=== PATIENT | female | born 1945 | race Caucasian/White ===

== ENCOUNTER 2018-02-20 11:24 | Observation (INO) | payer MEDICARE ==
[~2018-02-20] VITALS: Ht 157.5 cm; Wt 104.2 kg
[~2018-02-20 11:24] MED LIST: ASPI-1197 PO; BUDE10.2 IH; DILT180T12 PO; HYDR25TA PO; LEVO50TA11 PO; NITR0.4T SL; PROAIR HFA PUFF; PROG100C6 PO
[2018-02-20] MEDS ORDERED: NITROGLYCERIN 1GM/1 INCH PACKET TD ONE (11:44)
[2018-02-20] MEDS ORDERED: ASPIRIN 325 MG TABLET ONE (11:44)
[2018-02-20 11:54] LABS: BASOPHILS % (AUTO) 0.4 % (0.0-5.0); EOSINOPHILS % (AUTO) 0.2 % (0.0-8.0); HEMATOCRIT 37.1 % (36-48); LYMPHOCYTES % (AUTO) 12.8 % (21.0-51.0); MEAN CORPUSCULAR HEMOGLOBIN 26.5 pg (27.0-33.0); MEAN CORPUSCULAR HGB CONC 31.1 g/dL (32.0-36.0); MEAN CORPUSCULAR VOLUME 85.1 fL (79-99); MONOCYTES % (AUTO) 7.3 % (3.0-13.0); NEUTROPHILS % (AUTO) 79.3 % (40.0-77.0); PLATELET COUNT (AUTO) 405 K/uL (130-400); RED BLOOD CELL COUNT(AUTO) 4.36 MIL/uL (4.00-5.50); RED CELL DISTRIBUTION WIDTH 15.3 % (11.0-15.5); WHITE BLOOD COUNT (AUTO) 12.6 K/uL (4.8-10.8)
[2018-02-20 12:35] LABS: ALBUMIN 2.8 g/dL (3.5-5.0); BILIRUBIN,TOTAL 0.4 mg/dL (0.2-1.0); CREATININE 0.8 mg/dL (0.5-1.5); TOTAL PROTEIN, SERUM 7.1 g/dL (6.0-8.3)
[2018-02-20 12:46] LABS: POTASSIUM 2.9 mmol/L (3.5-5.1)
[2018-02-20] MEDS ORDERED: POTASSIUM CHLORIDE 20 MEQ ERTAB PO ONE (13:22)
[2018-02-20] MEDS ORDERED: SODIUM CHLORIDE 0.9% 10 ML VIAL IVP PRN (14:15)
[2018-02-20 15:00] LABS: INR 0.95 (0.85-1.15); PARTIAL THROMBOPLASTIN TIME 27.7 SEC (26.3-35.5)
[2018-02-20 15:25] VITALS: BP 118/78
[2018-02-20] MEDS ORDERED: ACETAMINOPHEN EXTRA STRENGTH 500 MG TABLET PO PRN (16:30)
[2018-02-20] MEDS ORDERED: HYDROMORPHONE HCL 0.5 MG/0.5 ML ML IVP PRN (16:30)
[2018-02-20 17:15] LABS: CREATINE KINASE, TOTAL 39 U/L (21-232); MYOGLOBIN 36 ng/mL (10-92); TROPONIN I < 0.04 ng/mL (0.00-0.06)
[2018-02-20] MEDS ORDERED: HYDR25TA PO (17:15)
[2018-02-20] MEDS ORDERED: UMEC62.5 IH (17:15)
[2018-02-20] MEDS ORDERED: MONT10TA24 PO (17:15)
[2018-02-20] MEDS ORDERED: ERGO500014 PO (17:15)
[2018-02-20] MEDS ORDERED: ALBU2.5V2 IH (17:15)
[2018-02-20] MEDS ORDERED: THEO400T3 PO (17:15)
[2018-02-20] MEDS ORDERED: FLUT1BLS IH (17:15)
[2018-02-20] MEDS ORDERED: LEVO50TA11 PO (17:15)
[2018-02-20] MEDS ORDERED: PRED20TA3 PO (17:15)
[2018-02-20] MEDS ORDERED: PROG100C6 PO (17:15)
[2018-02-20] MEDS ORDERED: DICL100T5 PO (17:15)
[2018-02-20] MEDS ORDERED: MELO-108 PO (17:15)
[2018-02-20] MEDS ORDERED: PROAIR 90 MCG PUFF PRN (19:00)
[2018-02-20] MEDS ORDERED: ALBUTEROL SULFATE 0.083% 2.5 MG/3 ML INH IH PRN (19:00)
[2018-02-20 20:00] VITALS: BP 114/54
[2018-02-20] MEDS: THEOPHYLLINE ANHYDROUS 400 MG PO SCH (21:00)
[2018-02-20] MEDS: PROGESTERONE MICRONIZED PO SCH (21:00)
[2018-02-20] MEDS: DICLOFENAC SODIUM 100 MG PO SCH (21:00)
[2018-02-20] MEDS: MONTELUKAST SODIUM 10 MG TAB PO SCH (21:54)
[2018-02-20] MEDS: MELOXICAM 7.5 MG TABLET PO SCH (21:55)
[2018-02-20] MEDS: IPRATROPIUM 0.5 MG/2.5 ML INH IH SCH (23:14)
[2018-02-20] MEDS: ALBUTEROL SULFATE 0.083% 2.5 MG/3 ML INH IH SCH (23:14)
[2018-02-21] VITALS (7 sets, daily range): BP systolic 110–160; BP diastolic 51–73
[2018-02-21 04:34] LABS: HEMATOCRIT 31.1 % (36-48); MEAN CORPUSCULAR HEMOGLOBIN 28.7 pg (27.0-33.0); MEAN CORPUSCULAR HGB CONC 33.5 g/dL (32.0-36.0); MEAN CORPUSCULAR VOLUME 85.5 fL (79-99); PLATELET COUNT (AUTO) 423 K/uL (130-400); RED BLOOD CELL COUNT(AUTO) 3.63 MIL/uL (4.00-5.50); RED CELL DISTRIBUTION WIDTH 15.5 % (11.0-15.5); WHITE BLOOD COUNT (AUTO) 10.8 K/uL (4.8-10.8)
[2018-02-21 04:56] LABS: ALBUMIN 2.4 g/dL (3.5-5.0); BILIRUBIN,TOTAL 0.5 mg/dL (0.2-1.0); POTASSIUM 3.8 mmol/L (3.5-5.1); TOTAL PROTEIN, SERUM 6.2 g/dL (6.0-8.3)
[2018-02-21] MEDS: ALBUTEROL SULFATE 0.083% 2.5 MG/3 ML INH IH SCH ×4 (06:03→23:30)
[2018-02-21] MEDS: IPRATROPIUM 0.5 MG/2.5 ML INH IH SCH ×4 (06:03→23:30)
[2018-02-21] MEDS: BUDESONIDE 0.5 MG/2 ML INH IH SCH ×2 (06:15→18:36)
[2018-02-21] MEDS: LEVOTHYROXINE 50 MCG TABLET PO SCH (06:20)
[2018-02-21] MEDS: HYDROCHLOROTHIAZIDE 25 MG TABLET PO SCH (06:20)
[2018-02-21 08:13] LABS: CREATINE KINASE, TOTAL 36 U/L (21-232); MYOGLOBIN 45 ng/mL (10-92); TROPONIN I < 0.04 ng/mL (0.00-0.06)
[2018-02-21] MEDS ORDERED: BIEST TP SCH (09:00)
[2018-02-21] MEDS ORDERED: [UNRECOGNIZED DRUG - OTHER] TP SCH (09:00)
[2018-02-21] MEDS: PREDNISONE 20 MG TABLET PO SCH (09:31)
[2018-02-21] MEDS: ASPIRIN 81MG TAB.CHEW PO SCH (09:31)
[2018-02-21] MEDS: DICLOFENAC SODIUM 100 MG PO SCH (21:00)
[2018-02-21] MEDS: THEOPHYLLINE ANHYDROUS 400 MG PO SCH (21:00)
[2018-02-21] MEDS: PROGESTERONE MICRONIZED PO SCH (21:00)
[2018-02-21] MEDS: MELOXICAM 7.5 MG TABLET PO SCH (22:54)
[2018-02-21] MEDS: MONTELUKAST SODIUM 10 MG TAB PO SCH (22:54)
[2018-02-22 03:45] VITALS: BP 122/60
[2018-02-22] MEDS: HYDROCHLOROTHIAZIDE 25 MG TABLET PO SCH (05:56)
[2018-02-22] MEDS: LEVOTHYROXINE 50 MCG TABLET PO SCH (05:56)
[2018-02-22] MEDS: IPRATROPIUM 0.5 MG/2.5 ML INH IH SCH ×2 (06:00→12:48)
[2018-02-22] MEDS: ALBUTEROL SULFATE 0.083% 2.5 MG/3 ML INH IH SCH ×2 (06:00→12:48)
[2018-02-22] MEDS: BUDESONIDE 0.5 MG/2 ML INH IH SCH (06:11)
[2018-02-22 07:46] VITALS: BP 129/71
[2018-02-22] MEDS: ASPIRIN 81MG TAB.CHEW PO SCH (09:00)
[2018-02-22] MEDS: PREDNISONE 20 MG TABLET PO SCH (09:00)
[2018-02-22] MEDS ORDERED: REGADENOSON 0.4 MG/5 ML PF SYG IVP SCH (09:30)
[2018-02-22 12:22] VITALS: BP 142/71
[2018-02-22] MEDS ORDERED: HOME MEDICATION 1 EACH TP SCH (21:00)
[2018-02-27] MEDS ORDERED: ERGOCALCIFEROL (VITAMIN D2) 50,000 UNIT CAPSULE PO SCH (09:00)
== END 2018-02-22 14:45 | disposition home or self-care (01) ==
LOC: EDH 11:24 → EDHIP 13:40 → 3AH 15:39
PROVIDERS: ADMIT Internal Medicine; ATTEND Internal Medicine
DX: R07.89 Other chest pain (principal); I25.10 Atherosclerotic heart disease of native coronary artery without angina pectoris; E66.01 Morbid (severe) obesity due to excess calories; E78.5 Hyperlipidemia, unspecified; I10 Essential (primary) hypertension; J44.9 Chronic obstructive pulmonary disease, unspecified; E03.9 Hypothyroidism, unspecified
CPT/HCPCS: 36415 ×2; 71045; 78452; 80053 ×2; 82550 ×2; 83874 ×2; 84484 ×3; 85025; 85027; 85610; 85730; 93005; 93017; 94640 ×10; 94664; 99285; A9500 ×2; G0378 ×49; J2785; 96374

== ENCOUNTER → 2018-03-06 | Outpatient (CLI) | payer MEDICARE ==
[~2018-03-06] MED LIST changes: +ALBU2.5V2 IH; -ASPI-1197 PO; -BUDE10.2 IH; +DICL100T5 PO; -DILT180T12 PO; +ERGO500014 PO; +FLUT1BLS IH; +MELO-108 PO; +MONT10TA24 PO; -NITR0.4T SL; +PRED20TA3 PO; +THEO400T3 PO; +UMEC62.5 IH
== END | disposition home or self-care (01) ==
LOC: RAH 12:00
PROVIDERS: ATTEND Internal Medicine
DX: J44.9 Chronic obstructive pulmonary disease, unspecified (principal); R07.9 Chest pain, unspecified
CPT/HCPCS: 71046; 78582; A9540; A9558

== ENCOUNTER → 2018-04-13 | Outpatient (CLI) | payer MEDICARE | END | disposition home or self-care (01) | LOC: SLP 20:26 | PROVIDERS: ATTEND Internal Medicine Cardiovascular Disease | DX: G47.33 Obstructive sleep apnea (adult) (pediatric) (principal) | CPT/HCPCS: 95810 ==

== ENCOUNTER → 2018-05-01 | Outpatient (CLI) | payer MEDICARE | END | disposition home or self-care (01) | LOC: SLP 20:23 | PROVIDERS: ATTEND Internal Medicine Cardiovascular Disease | DX: G47.33 Obstructive sleep apnea (adult) (pediatric) (principal) | CPT/HCPCS: 95811 ==

== ENCOUNTER → 2018-07-05 | Outpatient (CLI) | payer MEDICARE | END | disposition home or self-care (01) | LOC: SHCH 10:01 | PROVIDERS: ATTEND Internal Medicine Cardiovascular Disease | DX: G47.33 Obstructive sleep apnea (adult) (pediatric) (principal); R06.02 Shortness of breath | CPT/HCPCS: 93306 ==

== ENCOUNTER → 2019-06-20 | Outpatient (CLI) | payer OTHER, MEDICARE ==
[~2019-06-20] MED LIST changes: -DICL100T5 PO; +DICL100T85 PO; +PROG100C11 PO; -PROG100C6 PO
== END | disposition home or self-care (01) ==
LOC: RAH 08:38
PROVIDERS: ATTEND Family Medicine
DX: R74.8 Abnormal levels of other serum enzymes (principal); K76.0 Fatty (change of) liver, not elsewhere classified
CPT/HCPCS: 76705